=== PATIENT | female | born 1995 | race Hispanic/Latino ===

== ENCOUNTER 2019-09-06 20:40 | Emergency (ER) | payer MEDICAID ==
[~2019-09-06 20:40] MED LIST: PNV91TAB3 PO
[2019-09-06] MEDS ORDERED: DIPHENHYDRAMINE HCL 25 MG CAPSULE ONE (21:16)
== END 2019-09-06 21:26 | disposition home or self-care (01) ==
LOC: EDH 20:40
DX: O26.892 Other specified pregnancy related conditions, second trimester (principal); S20.369A Insect bite (nonvenomous) of unspecified front wall of thorax, initial encounter; Z3A.19 19 weeks gestation of pregnancy
CPT/HCPCS: 99282; Q0163

== ENCOUNTER 2019-11-15 17:34 | Observation (INO) | payer OTHER ==
[2019-11-15] MEDS ORDERED: LACTATED RINGERS 1000ML 1,000 ML IV SCH (18:30)
[2019-11-15 19:28] LABS: HEMATOCRIT 33.4 % (36-48); MEAN CORPUSCULAR HEMOGLOBIN 26.8 pg (27.0-33.0); MEAN CORPUSCULAR HGB CONC 32.9 g/dL (32.0-36.0); MEAN CORPUSCULAR VOLUME 81.5 fL (79-99); PLATELET COUNT (AUTO) 256 K/uL (130-400); RED CELL DISTRIBUTION WIDTH 12.7 % (11.0-15.5); WHITE BLOOD COUNT (AUTO) 6.6 K/uL (4.8-10.8)
[2019-11-15 19:52] LABS: APPEARANCE,URINE Clear (CLEAR); BILIRUBIN,URINE Negative (NEGATIVE); COLOR,URINE Yellow (YELLOW); GLUCOSE, URINE (UA) Negative (NEGATIVE); KETONES,URINE Negative (NEGATIVE); LEUKOCYTE ESTERASE ,URINE Negative (NEGATIVE); NITRATE,URINE Negative (NEGATIVE); OCCULT BLOOD,URINE Negative (NEGATIVE); PH,URINE 5.5 (5.0-8.0); PROTEIN,URINE Negative (NEGATIVE); UROBILINOGEN,URINE 0.2 mg/dL (0.2-1.0)
[2019-11-15 20:00] LABS: AMPHET/METH SCREEN,URINE NEGATIVE (NEGATIVE); BARBITURATE SCREEN, URINE NEGATIVE (NEGATIVE); BENZODIAZEPINES SCREEN,URINE NEGATIVE (NEGATIVE); CANNABINOID SCREEN,URINE NEGATIVE (NEGATIVE); COCAINE SCREEN,URINE NEGATIVE (NEGATIVE); OPIATE SCREEN,URINE NEGATIVE (NEGATIVE); PHENCYCLIDINE SCREEN,URINE NEGATIVE (NEGATIVE)
[2019-11-17 07:11] LABS: HEPATITIS Bs ANTIGEN SCREEN P Negative (Negative)
== END 2019-11-15 20:30 | disposition home or self-care (01) ==
LOC: LDH 17:34
PROVIDERS: ADMIT Obstetrics & Gynecology; ATTEND Obstetrics & Gynecology
DX: O42.913 Preterm premature rupture of membranes, unspecified as to length of time between rupture and onset of labor, third trimester (principal); Z3A.29 29 weeks gestation of pregnancy
CPT/HCPCS: 36415; 80305; 81003; 85027; 86592; 86850; 86900; 86901; 87340; G0378 ×2; 96360; 96361

== ENCOUNTER 2020-01-19 12:00 | Inpatient (IN) | payer MEDICAID, OTHER ==
[~2020-01-19] VITALS: Ht 154.9 cm; Wt 88.5 kg
[2020-01-24] MEDS ORDERED: CEFAZOLIN SODIUM 1 GM VIAL IVP PRN (06:00)
[2020-01-24] MEDS ORDERED: CALDOLOR 800MG+NS 250ML 250 ML IV PRN (06:00)
[2020-01-24] MEDS ORDERED: LACTATED RINGERS 1000ML 1,000 ML IV SCH (06:00)
[2020-01-24] MEDS ORDERED: DURAMORPH PF1 MG/ML 10ML AMP IV ONE (07:15)
[2020-01-24] MEDS ORDERED: FENTANYL CITRATE PF 50 MCG/1 ML 2ML VIAL ONE (07:15)
[2020-01-24] MEDS ORDERED: CEFAZOLIN SODIUM 1 GM VIAL IVP ONE (07:39)
[2020-01-24] MEDS ORDERED: ONDANSETRON HCL 4 MG/2 ML VIAL ONE (07:44)
[2020-01-24] MEDS ORDERED: PHENYLEPHRINE HCL 10 MG/ML 1ML VIAL IV ONE (07:48)
[2020-01-24] MEDS ORDERED: OXYTOCIN 10 UNIT/1ML 10ML VIAL ONE (07:49)
[2020-01-24] MEDS ORDERED: OXYTOCIN-LR 20 UNITS/1000 ML 1,000 ML IV PRN (08:15)
[2020-01-24] MEDS ORDERED: SODIUM CHLORIDE 0.9% 10 ML VIAL IVP PRN (08:15)
[2020-01-24] MEDS ORDERED: ACETAMINOPHEN-CODEINE 300/30MG TAB PO PRN (08:15)
[2020-01-24] MEDS ORDERED: MEASLES/MUMPS/RUBELLA VACCINE, LIVE 0.5 ML/VIAL SQ SCH (08:15)
[2020-01-24] MEDS ORDERED: PROMETHAZINE HCL 25 MG/ML 1ML AMPULE IM PRN (08:15)
[2020-01-24] MEDS ORDERED: LANOLIN 30GM OINTMENT TP PRN (08:15)
[2020-01-24] MEDS ORDERED: DEXTROSE 5 %-0.45 % NACL 1,000 ML IV PRN (08:15)
[2020-01-24] MEDS ORDERED: DIPH,PERTUSS(ACELL),TET VAC/PF 0.5 ML VIAL IM SCH (08:15)
[2020-01-24] MEDS ORDERED: DIPHENHYDRAMINE HCL 25 MG CAPSULE PO PRN (08:15)
[2020-01-24] MEDS ORDERED: BISACODYL 10 MG SUPP.RECT RC PRN (08:15)
[2020-01-24] MEDS ORDERED: ACETAMINOPHEN EXTRA STRENGTH 500 MG TABLET PO PRN (08:15)
[2020-01-24] MEDS ORDERED: HYDROCODONE/ACETAMINOPHEN 5/325 MG TAB PO PRN (08:15)
[2020-01-24] MEDS: IBUPROFEN 800 MG TAB PO SCH ×3 (08:15→20:23)
[2020-01-24] MEDS ORDERED: MEPERIDINE-PF 75 MG/ML SYG IM PRN (08:15)
[2020-01-24] MEDS: DOCUSATE SODIUM 100 MG CAP PO SCH ×2 (09:00→20:46)
[2020-01-24] MEDS ORDERED: ONDANSETRON HCL 4 MG/2 ML VIAL IVP PRN (09:15)
[2020-01-24] MEDS ORDERED: EPHEDRINE SULFATE 50 MG/ML AMPULE IVP PRN (09:15)
[2020-01-24] MEDS ORDERED: NALOXONE HCL 0.4 MG/1 ML ML IVP PRN (09:15)
[2020-01-24] MEDS ORDERED: DiphenhydrAMINE HCL 50 MG/ML VIAL IVP PRN (09:15)
[2020-01-24 09:45] VITALS: BP 112/77; PULSE 92; RESP 18; TEMP 98.4
[2020-01-24] MEDS: LIDOCAINE 5% TOPICAL PATCH TP SCH (10:08)
[2020-01-24 11:37] VITALS: BP 114/66; PULSE 100; RESP 20; TEMP 99.3
[2020-01-24] MEDS: CALDOLOR 800MG+NS 250ML 250 ML IV SCH (16:03)
[2020-01-24 16:09] VITALS: BP 114/69; PULSE 92; RESP 20; TEMP 98.9
[2020-01-24 19:40] VITALS: BP 116/49; PULSE 95; RESP 18; TEMP 99.5
[2020-01-24] MEDS: SIMETHICONE 80 MG TAB.CHEW PO PRN (20:46)
--- NOTE | 2020-01-24 22:00 | NUR ---
LIDODERM PATCH REMOVED. DERMABOND TO INCISION CLEAN, D/I.
[2020-01-24 23:50] VITALS: BP 106/58; PULSE 92; RESP 20; TEMP 98.5
--- NOTE | 2020-01-25 | NUR ---
EDGAR CARE DONE,SMALL AMT. OF MAURA RENNER NOTED. Addendum: 01/25/20 at 0601 by OVI WILL RN RN Amended: Links added.
[2020-01-25] MEDS: CALDOLOR 800MG+NS 250ML 250 ML IV SCH (00:16)
[2020-01-25 03:20] VITALS: BP 99/58; PULSE 89; RESP 18; TEMP 99.4
--- NOTE | 2020-01-25 06:30 | NUR ---
MILLY GARCIA DC'Nani; EDGAR CARE DONE AND SAT UP IN CHAIR WITH ASSIST. PT. INST TO CALL FOR ASSIST BEFORE GETTING OUT OF BED, VERBALIZED UNDERSTANDING.. Addendum: 01/25/20 at 0702 by OVI WILL RN RN Amended: Links added.
[2020-01-25 07:29] VITALS: BP 106/62; PULSE 104; RESP 18; TEMP 98.7
[2020-01-25] MEDS: IBUPROFEN 800 MG TAB PO SCH (07:48)
[2020-01-25] MEDS: SIMETHICONE 80 MG TAB.CHEW PO PRN (09:00)
[2020-01-25] MEDS: DOCUSATE SODIUM 100 MG CAP PO SCH (09:00)
[2020-01-25 11:21] VITALS: BP 100/51; PULSE 91; RESP 20; TEMP 99.2
[2020-01-25] MEDS: LIDOCAINE 5% TOPICAL PATCH TP SCH (12:33)
--- NOTE | 2020-01-25 13:15 | NUR ---
DISCHARGE PT LEFT UNIT VIA WHEELCHAIR, WITH BABY IN ARMS ACCOMPANIED BY SIGNIFICANT OTHER. DENIED PAIN AND HAD NO COMPLAINTS. BABY STRAPPED IN CAR SEAT. PT AND BABY TRANSPORTED BY PERSONAL VEHICLE.
== END 2020-01-25 13:15 | disposition home or self-care (01) | DRG 788 ==
LOC: LDH 01-24 05:42 → WSH 01-24 09:35
PROVIDERS: ADMIT Obstetrics & Gynecology; ATTEND Obstetrics & Gynecology
PROC: 3E0234Z Introduction of Serum, Toxoid and Vaccine into Muscle, Percutaneous Approach (ICD-10-PCS; 2020-01-24)
PROC: 10D00Z1 Extraction of Products of Conception, Low, Open Approach (ICD-10-PCS; principal; 2020-01-24 07:30)
DX: O34.211 Maternal care for low transverse scar from previous cesarean delivery (principal); O69.81X0 Labor and delivery complicated by cord around neck, without compression, not applicable or unspecified; Z3A.39 39 weeks gestation of pregnancy; Z37.0 Single live birth; Z23 Encounter for immunization; Z20.828 Contact with and (suspected) exposure to other viral communicable diseases